=== PATIENT | female | born 2000 | race Caucasian/White ===

== ENCOUNTER 2025-07-20 19:31 | Emergency (ER) | payer MEDICAID, OTHER ==
[~2025-07-20] VITALS: Ht 162.6 cm; Wt 94.0 kg
--- NOTE | 2025-07-20 20:16 | ED.PDOC ---
History of Present Illness HPI Comments HPI: 25-year-old female came to ER for generalized weakness. Patient states for the past 2 days, she has been feeling generally weak, tired, headaches, dizziness, feels like passing out, with mild shortness of breath. Patient states she felt this way before and she was diagnosed of sepsis. Upon arrival, blood pressure 126/84 mmHg, tachycardic at the 120s, tachypneic at 25, saturating 98% on room air, with a temp of 99.6 F Past Medical History: Sepsis Surgical History: Family History: Denies Personal and Social History: Denies HPI: Poor Historian. REVIEW OF SYSTEMS: CONSTITUTIONAL: Denies acute: diaphoresis, HEAD: Denies acute: photophobia Eyes: Denies acute: Double vision, vision loss, eye pain, eye discharge. EARS: Denies acute: tinnitus, hearing loss, ear discharge, ear pain, THROAT: Denies acute: sore throat, swelling, difficulty swallowing , pain with swallowing, change in voice. NECK: Denies acute: neck pain, neck swelling, stiff neck. HEART: Denies acute : chest pain, palpitations, LUNGS: Denies acute: wheezing, cough, hemoptysis ABDOMEN: Denies acute: abdominal pain, Nausea, Vomiting, diarrhea, melena , hematemesis, hematochezia SKIN: Denies acute: rash, redness, lesions, itchiness. EXTREMITIES: Denies acute: calf pain, numbness, tingling, weakness, denies pain in extremity. Denies acute: Low back pain. Neuro: Denies acute: focal neurological deficit, motor or sensory focal neurological deficit, tremors, seizure like activity, confusion, change in mental status, loss of bowel or bladder function, cauda equina like symptoms. : Denies acute: dysuria, hematuria, flank pain, increase in urinary frequency. PSYCH: Denies acute: hallucination, suicidal ideation, homicidal ideation. FEMALE: Denies acute: abnormal vaginal bleeding, foul odor, unusual discharge. PHYSICAL EXAM: General: -----mild---acute distress, awake and alert. Head: normocephalic, atraumatic. No raccoon's eyes, no barney sign. Neck: supple, trachea is midline, no swelling. Throat: Normal phonation. Eyes:, no erythema, no purulent discharge, no proptosis, no icterus. Heart: regular tachycardic, no significant murmur appreciated. Lungs: no apparent respiratory distress, Able to speak in full sentences. No wheezing, no rhonchi, no crackles. No stridors Clear to auscultation bilaterally. Abdomen: non tender to palpation, non distended, soft, no guarding, no rebound, + bowel sounds. Neuro: Awake, Alert, oriented to name, self, situation, follows commands GCS=15. Speech is normal. Skin: no petechia, no purpura, no cyanosis, non-pale, not jaundice. Lower extremities: --no - Pitting edema no deformity, no focal swelling, no calf TTP. Makes eye contact. moves all four extremities. Face: no apparent facial droop. Ambulating in the ED independently. No nuchal rigidity, Kernig's sign, Brudzinski's sign, no meningeal signs. ED COURSE: DISCLAIMER: This medical document was created using an electronic medical record system with voice recognition software and computerized dictation system. Although this document has been carefully reviewed, there might still be some phonetic and typographical errors. Occasional wrong-word or "sound-alike" substitutions may have occurred due to the inherent limitations of voice recognition software. These areas are purely typographical due to imperfections of the software programs and do not reflect any compromise in the patient's medical care. Please read the chart carefully and recognize, using context, where these substitutions have occurred. Chief Complaint: General Weakness Time Seen by MD: 20:16 Reviewed Notes: Nurses Notes, Allergies Allergies: Coded Allergies: NO KNOWN ALLERGIES (Unverified , 07/20/25) Information Source: Patient Mode of Arrival: Ambulatory Was a procedure done? Was a procedure done?: No Differential Dx Considerations may include: Includes but not limited to thyroid disease, encephalopathy, electrolyte abnormality, sepsis, infection, intracranial pathology, drug adverse effects, arrhythmia, kidney insufficiency, ACS, CVA, malignancy, anemia X-Ray, Labs, Meds, VS Vital Signs Date Time Temp Pulse Resp B/P (MAP) Pulse Ox O2 Delivery O2 Flow Rate FiO2 07/20/25 22:21 92 18 98 Room Air* 0 21 07/20/25 22:21 98.4 92 18 113/69 (84) 98 98.4 07/20/25 19:34 99.6 120 25 126/84 98 99.6 Lab Test 07/20/25 21:50 07/20/25 21:31 07/20/25 20:10 Range/Units Influenza Type A Antigen Negative Negative Influenza Type B Antigen Negative Negative SARS-CoV-2 Antigen (Rapid) Negative NEGATIVE Urine Color Colorless Yellow Urine Clarity Clear Clear Urine pH 7.5 5.0-9.0 Urine Specific [place] 1.005 1.001-1.035 Urine Protein Negative Negative Urine Ketones Negative Negative Urine Blood Trace H Negative /uL Urine Nitrite Negative Negative Urine Bilirubin Negative Negative Urine Urobilinogen Normal Negative mg/dL Urine Leukocyte Esterase Negative Negative /uL Urine RBC 1 0 - 4 /hpf Urine Microscopic WBC 3 0-5 /HPF Urine Squamous Epithelial Cells Few <5 /hpf Urine Bacteria Few H None Seen /hpf Urine Glucose Normal Normal mg/dL Urine Test Negative Negative Urine Opiates Screen Neg NEGATIVE Urine Fentanyl Screen Neg NEGATIVE Urine Barbiturates Screen Neg NEGATIVE Urine Phencyclidine Screen Neg NEGATIVE Urine Amphetamines Screen Neg NEGATIVE Urine Benzodiazepines Screen Neg NEGATIVE Urine Cocaine Screen Neg NEGATIVE Urine Cannabinoids Screen Neg NEGATIVE White Blood Count 13.6 H 4.4-10.8 10^3/uL Red Blood Count 4.92 4.0-5.20 10^6/uL Hemoglobin 14.7 12.2-16.2 g/dL Hematocrit 41.5 36.0-46.0 % Mean Corpuscular Volume 84.5 80.0-100.0 fL Mean Corpuscular Hemoglobin 30.0 28.0-32.0 pg Mean Corpuscular Hemoglobin Concent 35.5 32.0-36.0 g/dL Red Cell Distribution Width 13.5 11.8-14.3 % Platelet Count 354 140-450 10^3/uL Mean Platelet Volume 8.1 6.9-10.8 fL Neutrophils (%) (Auto) 75.8 37.0-80.0 % Lymphocytes (%) (Auto) 13.8 10.0-50.0 % Monocytes (%) (Auto) 8.2 0.0-12.0 % Eosinophils (%) (Auto) 1.9 0.0-7.0 % Basophils (%) (Auto) 0.3 0.0-2.0 % Neutrophils # (Auto) 10.3 H 1.6-8.6 10 ^3/uL Lymphocytes # (Auto) 1.9 0.4-5.4 10 ^3/uL Monocytes # (Auto) 1.1 0-1.3 10 ^3/uL Eosinophils # (Auto) 0.3 0-0.8 10 ^3/uL Basophils # (Auto) 0 0-0.2 10 ^3/uL Nucleated Red Blood Cells 1.9 % Prothrombin Time 10.9 9.3-11.8 sec Prothrombin Time INR 1.03 0.9-1.15 Activated Partial Thromboplast Time 30.2 24.5-34.5 SEC Sodium Level 140 136-145 mmol/L Potassium Level 3.9 3.5-5.1 mmol/L Chloride Level 102 98-107 mmol/L Carbon Dioxide Level 27 20-31 mmol/L Anion Gap 11 5-15 Blood Urea Nitrogen 8 L 9-23 mg/dL Creatinine 0.89 0.550-1.02 mg/dL Glomerular Filtration Rate Calc 93 >90 mL/min BUN/Creatinine Ratio 9.0 L 10.0-20.0 Serum Glucose 91 74-106 mg/dL Lactic Acid Level 1.5 0.4-2.0 mmol/L Calcium Level 9.6 8.7-10.4 mg/dL Total Bilirubin 0.5 0.2-1.0 mg/dL Aspartate Amino Transferase (AST) 20 13-40 U/L Alanine Aminotransferase (ALT) 15 7-40 U/L Alkaline Phosphatase 81 46-116 U/L Total Protein 8.3 H 5.7-8.2 g/dL Albumin 5.0 H 3.2-4.8 g/dL Monoscreen Negative Current Medications Medications (Trade) Dose Ordered Sig/Tobias Route Start Time Stop Time Status Last Admin Lactated Ringer's 1,650 ml @ 1,650 mls/hr ONCE ONCE IV 07/20/25 20:00 07/20/25 20:59 DC 07/20/25 21:21 Cefepime HCl 50 ml @ 50 mls/hr ONCE ONCE IV 07/20/25 22:30 07/20/25 23:29 DC 07/20/25 22:[address] [address] Ph: [phone] DIAGNOSTIC IMAGING Diagnostic Imaging Report : [id number] Signed PATIENT: SHERYL ONEAL ACCT: [id number] UNIT: [id number] : 2000 LOC: ER ROOM / BED: / AGE / SEX: 25 / F ADM STATUS: [facility] ER SERVICE 47 ORDERING PHYSICIAN: MADELIN EVANS DO PROCEDURE(s): CXRP - CHEST PORTABLE REASON: sepsis ORDER NUMBER(s): [id number], ACCESSION NUMBER(s): [id number] CHEST RADIOGRAPH Indication: sepsis Technique: Single frontal view of the chest was obtained COMPARISON: None FINDINGS: Lungs and pleural spaces are clear. Cardiac silhouette and shaka are within normal limits. Bones and soft tissues demonstrate no significant abnormality. IMPRESSION: No acute disease. ATED BY: BRET THAKUR MD DICTATED DATE/TIME: 07/21/25152 SIGNED BY: BRET THAKUR MD SIGNED DATE/TIME: 07/21/25152 CC: Time of 1ST Reevaluation: 20:14 Reevaluation 1ST: Unchanged Patient Education/Counseling: Other Family Education/Counseling: Other Comments MDM: patient presented with the above HPI.--generalized weakness/sepsis----workup was initiated. patient was found with the above mentioned diagnosis. the following medications were ordered: please refer to order lists of meds and tests obtained by myself Dr. Evans. Escalation of care considered: Consideration of escalation to observation or admission Sepsis protocol was initiated Later I was informed that the patient eloped. Patient's vital signs have improved compared to her initial presentation in the ED. All the reports of any imaging studies that were ordered by myself were reviewed by myself. SEPSIS Sepsis Screen Date sepsis recognized/suspect: Jul 20, 2025 Time Sepsis recognized/suspect: 1937 Recent Procedure: No On Antibiotic Therapy: No Respiratory Rate >20: Yes Heart Rate >90: Yes Temp<36 C (96.8 F) or >38.3 C: No SBP <90 or MAP <65 mmHG: No New Acute Mental Status Change: No Is the patient on CPAP, BIPAP,: No Physician Orders Blood Culture (07/20/25 19:42) Chest Portable (07/20/25 19:48) Accucheck (07/20/25 19:48) Notify Md If Map <65 Or Bp<90 (07/20/25 19:48) If Map<65 Start Vasopressor (07/20/25 19:48) Sepsis Reassesment After Fluid (07/20/25 20:48) Vital Signs Date Time Temp Pulse Resp B/P (MAP) Pulse Ox O2 Delivery O2 Flow Rate FiO2 07/20/25 22:21 92 18 98 Room Air* 0 21 07/20/25 22:21 98.4 92 18 113/69 (84) 98 98.4 07/20/25 19:34 99.6 120 25 126/84 98 99.6 Laboratory Tests Test 07/20/25 20:10 Lactic Acid Level 1.5 mmol/L (0.4-2.0) White Blood Count 13.6 10^3/uL (4.4-10.8) H Medications Medications Dose Ordered Sig/Tobias Route Start Time Stop Time Status Last Admin Dose Admin Cefepime HCl 50 ml @ 50 mls/hr ONCE ONCE IV 07/20/25 22:30 07/20/25 23:29 DC 07/20/25 22:19 Lactated Ringer's 1,650 ml @ 1,650 mls/hr ONCE ONCE IV 07/20/25 20:00 07/20/25 20:59 DC 07/20/25 21:21 Departure 1 Departure Time of Disposition: 02:34 Impression: Primary Impression: Eloped from emergency department Additional Impression: Generalized weakness Disposition: 07 LEFT AWOL/ELOPED Condition: Other Additional Instructions: Patient eloped Discharged With: Other Critical Care Note Critical Care Time?: Yes (45 min-critical care time only) I personally scribed for MADELIN EVANS DO ([email or web address]) on 07/20/25 at 20:16. Electronically submitted by Jose Rhodes ([facility]). I personally scribed for MADELIN EVANS DO ([email or web address]) on 07/21/25 at 02:04. Electronically submitted by Jose Rhodes ([facility]). I personally scribed for MADELIN EVANS DO ([email or web address]) on 07/21/25 at 02:11. Electronically submitted by Jose Rhodes ([email or web address]). MADELIN EVANS DO Jul 20, 2025 20:16
[2025-07-20 20:37] LABS: Hematocrit 41.5 % (36.0-46.0); Hemoglobin 14.7 g/dL (12.2-16.2); Mean Corpuscular Hemoglobin 30.0 pg (28.0-32.0); Mean Corpuscular Volume 84.5 fL (80.0-100.0); Nucleated Red Blood Cells % 1.9 %
[2025-07-20 20:50] LABS: INR 1.03 (0.9-1.15); Partial Thromboplastin Time 30.2 SEC (24.5-34.5); Prothrombin Time 10.9 sec (9.3-11.8)
[2025-07-20 20:52] LABS: Alanine Aminotransferase 15 U/L (7-40); Alkaline Phosphatase 81 U/L (46-116); Anion Gap 11 (5-15); BUN/Creatinine Ratio 9.0 (10.0-20.0); Calcium 9.6 mg/dL (8.7-10.4); Carbon Dioxide 27 mmol/L (20-31); Chloride 102 mmol/L (98-107); Glucose 91 mg/dL (74-106); Potassium 3.9 mmol/L (3.5-5.1); Sodium 140 mmol/L (136-145)
[2025-07-20 20:53] LABS: Bilirubin, Total 0.5 mg/dL (0.2-1.0)
[2025-07-20 21:09] LABS: Albumin 5.0 g/dL (3.2-4.8); Blood Urea Nitrogen 8 mg/dL (9-23); Total Protein 8.3 g/dL (5.7-8.2)
[2025-07-20] MEDS: LACTATED RINGER'S 1,650 ML IV ONE (21:21)
[2025-07-20 21:47] LABS: Urine Protein, UAD Negative (Negative)
[2025-07-20] MEDS ORDERED: CEFEPIME 1GM/50ML 50 ML IV SCH (22:00)
[2025-07-20] MEDS: CEFEPIME 1GM/50ML 50 ML IV ONE (22:19)
[2025-07-20 22:21] VITALS: BP 113/69; PULSE 92; RESP 18; TEMP 98.4; O2SAT 98
[2025-07-20 22:30] LABS: COVID19 ANTIGEN SOFIA FIA NEGATIVE (NEGATIVE)
[2025-07-21 01:34] LABS: Amphetamine Screen, Urine Neg (NEGATIVE); Barbiturate Scree,Urine Neg (NEGATIVE); Benzodiazephine Screen, Urine Neg (NEGATIVE); Cannabinoid Screen, Urine Neg (NEGATIVE); Cocaine Screen, Urine Neg (NEGATIVE); Opiate Scree,Urine Neg (NEGATIVE); Phencyclidine Screen, Urine Neg (NEGATIVE)
--- NOTE | 2025-07-21 01:56 | DVH ---
CHEST RADIOGRAPH Indication: sepsis Technique: Single frontal view of the chest was obtained COMPARISON: None FINDINGS: Lungs and pleural spaces are clear. Cardiac silhouette and shaka are within normal limits. Bones and soft tissues demonstrate no significant abnormality. IMPRESSION: No acute disease.
== END 2025-07-21 01:50 | disposition left against medical advice (07) ==
LOC: ER 19:31
DX: R53.1 Weakness (principal); Z98.890 Other specified postprocedural states; Z20.822 Contact with and (suspected) exposure to COVID-19
CPT/HCPCS: 36415; 71045; 80053; 80307; 81001; 81025; 83605; 85025; 85610; 85730; 86308; 87040; 87426; 87804; 96361; 96365; 99284; J0692